=== PATIENT | male | born 1990 | race American Indian/Alaskan Native ===

== ENCOUNTER 2021-09-24 23:39 | Emergency (ER) | payer SELFPAY ==
[2021-09-24 23:49] VITALS: BP 143/87
--- NOTE | 2021-09-26 10:16 | Electrocardiograph Report ---
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
== END 2021-09-25 10:16 | disposition left against medical advice (07) ==
LOC: ED 23:39
DX: G47.00 Insomnia, unspecified (principal); Z53.21 Procedure and treatment not carried out due to patient leaving prior to being seen by health care provider
CPT/HCPCS: 93005